=== PATIENT | male | born 1975 | race Caucasian/White ===

== ENCOUNTER 2023-07-29 17:46 | Emergency (ER) | payer MEDICAID ==
[~2023-07-29] VITALS: Ht 165.1 cm; Wt 90.7 kg
[2023-07-29 18:43] VITALS: BP_SYST 147; PULSE 77; RESP 18; TEMP 97.8; O2SAT 97
[2023-07-29] MEDS ORDERED: IBUP-1969 PO (21:48)
[2023-07-29] MEDS ORDERED: DICL20GE TP (21:48)
[2023-07-29] MEDS: IBUPROFEN 600 MG TABLET PO ONE (22:00)
[2023-07-29 22:06] VITALS: BP_SYST 147; PULSE 77; RESP 18; TEMP 97.8; O2SAT 97
== END 2023-07-29 22:06 | disposition home or self-care (01) ==
LOC: SED 17:46
DX: S50.11XA Contusion of right forearm, initial encounter (principal); W20.8XXA Other cause of strike by thrown, projected or falling object, initial encounter; Y93.89 Activity, other specified; Y92.89 Other specified places as the place of occurrence of the external cause; Y99.8 Other external cause status
CPT/HCPCS: 73090; 99284